=== PATIENT | female | born 1985 | race Caucasian/White ===

== ENCOUNTER 2020-04-07 08:52 | Emergency (ER) | payer OTHER ==
[~2020-04-07] VITALS: Ht 154.9 cm; Wt 90.7 kg
[~2020-04-07 08:52] MED LIST: AMOX500 PO; CYCL10 PO; DOCU100 PO; ESCI10 PO; FLURBIPROFEN PO; IBUP800 PO; LAMO25 PO; NAPR500 PO; OXYACE5T PO; PARO30 PO; RXOXYACE PO; SIME80CH PO; TRAM50 PO
[2020-04-07 09:42] LABS: Source, Urine Clean Catch
[2020-04-07 09:45] LABS: Appearance, Urine Clear (Clear); Bilirubin, Urine Neg (Neg); Blood, Urine 1+ (Neg); Color, Urine Yellow (P-Yellow); Glucose Qualitative, Urine Neg (Neg); Ketones, Urine Neg (Neg); Leukocyte Esterase, Urine Neg (Neg); Nitrite, Urine Neg (Neg); Protein, Urine Neg (Neg); Specific Gravity, Urine 1.015 (1.003-1.022); Urobilinogen, Urine NORM (Normal)
[2020-04-07 10:02] LABS: Red Blood Cells, Urine 0-2 /hpf (0-2); Squamous Epithelial Cells Mod /hpf (Few); White Blood Cells, Urine 0-2 /hpf (0-5)
[2020-04-07 10:06] LABS: Bacteria Not Seen /hpf
[2020-04-07] MEDS ORDERED: Robaxin-750750 MG PO (10:35)
[2020-04-07] MEDS ORDERED: METPRE4DP PO (10:35)
== END 2020-04-07 10:58 | disposition home or self-care (01) ==
LOC: ER 08:52
PROVIDERS: Emergency Medicine
DX: S39.012A Strain of muscle, fascia and tendon of lower back, initial encounter (principal); X58.XXXA Exposure to other specified factors, initial encounter
CPT/HCPCS: 72100; 81001; 99283-25; A9270-GY; J1100

== ENCOUNTER → 2021-02-13 | Outpatient (CLI) | payer OTHER ==
[~2021-02-13] MED LIST changes: +METPRE4DP PO; +Robaxin-750750 MG PO
== END ==
LOC: LAB 10:34 → LAB SHORT 10:34
DX: N63.20 Unspecified lump in the left breast, unspecified quadrant (principal)
CPT/HCPCS: 87070; 87205

== ENCOUNTER 2022-08-15 12:19 | Emergency (ER) | payer OTHER ==
[~2022-08-15] VITALS: Ht 157.5 cm; Wt 79.4 kg
[2022-08-15] MEDS ORDERED: HYDR1TAB94 PO (14:15)
[2022-08-15] MEDS ORDERED: Bactrim Ds Tab1 EACH PO (14:15)
== END 2022-08-15 14:37 | disposition home or self-care (01) ==
LOC: ER 12:19
DX: N61.1 Abscess of the breast and nipple (principal); F17.210 Nicotine dependence, cigarettes, uncomplicated; Z79.899 Other long term (current) drug therapy
CPT/HCPCS: A9270

== ENCOUNTER → 2022-10-09 | Outpatient (CLI) | payer OTHER ==
[~2022-10-09] MED LIST changes: +Bactrim Ds Tab1 EACH PO; +HYDR1TAB94 PO
== END | disposition home or self-care (01) ==
LOC: LAB 12:00 → LAB SHORT 12:00
DX: N61.1 Abscess of the breast and nipple (principal)
CPT/HCPCS: 87070; 87075; 87205